=== PATIENT | female | born 1965 ===

== ENCOUNTER 2017-11-25 20:22 | Emergency (ER) | payer OTHER ==
[2017-11-25 20:22] VITALS: BMI 26.7
--- NOTE | 2017-11-25 20:51 | C.PDOC ---
History Of Present Illness 52 y/o female presents to the ED complaining of mid-sternal chest pain, onset around 6:00pm this evening. She denies prior history of similar pain in the past or family history of [place]. Pain is described as pressure-like, 4/10, and non- radiating. She states it worsens with movement of the upper extremities, not with inspiration. Otherwise patient denies associated SOB, VU, abdominal pain, diarrhea, dark or bloody stool, constipation, fever, chills, night sweats, or vomiting. Patient states she was cleaning this afternoon and then had a verbal argument with someone just prior to onset of pain. She denies trauma or fall. Tried taking ibuprofen around 7pm with no relief. Time Seen by Provider: 11/25/17 20:51 Chief Complaint (Nursing): Chest Pain History Per: Patient, Family (Son at bedside, translating Swiss for patient) History/Exam Limitations: no limitations Onset/Duration Of Symptoms: Hrs Current Symptoms Are (Timing): Still Present Past Medical History Reviewed: Historical Data, Nursing Documentation, Vital Signs Vital Signs: Last Vital Signs Temp 98.1 F 11/25/17 20:40 Pulse 69 11/26/17 01:52 Resp 16 11/26/17 01:52 BP 97/58 L 11/26/17 01:52 Pulse Ox 97 11/26/17 01:52 - Medical History PMH: No Chronic Diseases Surgical History: No Surg Hx Family History: States: No Known Family Hx Denies: [place] - Social History Hx Tobacco Use: No Hx Alcohol Use: Yes Hx Substance Use: No - Immunization History Hx Tetanus Toxoid Vaccination: No Hx Influenza Vaccination: No Hx Pneumococcal Vaccination: No Review Of Systems Constitutional: Negative for: Fever, Chills, Sweats Eyes: Negative for: Vision Change Cardiovascular: Positive for: Chest Pain. Negative for: Light Headedness Respiratory: Negative for: Shortness of Breath, SOB with Excertion Gastrointestinal: Negative for: Vomiting, Abdominal Pain Musculoskeletal: Negative for: Shoulder Pain, Arm Pain Neurological: Negative for: Weakness, Numbness, Headache, Dizziness Physical Exam - Physical Exam Appears: Non-toxic, No Acute Distress Skin: Warm, Dry Head: Atraumatic, Normacephalic Eye(s): bilateral: Normal Inspection, PERRL, EOMI Oral Mucosa: Moist Neck: Normal, Normal ROM, Trachea Midline, No Midline Cervical Tenderness, No Paracervical Tenderness, Supple, Other (negative kernig's and brudzinskis) Chest: Symmetrical, Tenderness (Reproducible mid-sternal chest pain on palpation ) Cardiovascular: Rhythm Regular, Other (No rub) Respiratory: No Rales, No Rhonchi, No Wheezing Gastrointestinal/Abdominal: Soft, No Tenderness, No Distention Extremity: Bilateral: Atraumatic, Normal Color And Temperature, Normal ROM Pulses: Left Dorsalis Pedis: Normal, Right Dorsalis Pedis: Normal Neurological/Psych: Oriented x3, Normal Speech Gait: Steady ED Course And Treatment - Laboratory Results Result Diagrams: 11/25/17 21:19 11/25/17 21:19 ECG: Interpreted By Me, Viewed By Me ECG Rhythm: Sinus Rhythm Rate From EC O2 Sat by Pulse Oximetry: 98 (on RA) Pulse Ox Interpretation: Normal Medical Decision Making Medical Decision Making: Impression: 52 y/o female complaining of mid-sternal chest pain, onset after stressful argument, no prior hx of chest pain or cardiac disease Plan: --EKG --CMP --Troponin I --CBC --Chest x-ray --Reassess and dispo Progress/Updates: EKG: NSR at 71 bpm, no STEMI, single flipped T in lead 3 1000 1st trop negative pending 2nd trop given CP @ 6pm HEART SCORE: Trop: pend RF: 0 Age: 1 EK Story: 0 [id number] 2nd trop negative pt remains pain free clear for d/c home Disposition - Disposition Disposition Time: 02:37 Condition: GOOD Forms: [facility] (Belizean) - Clinical Impression Clinical Impression: Chest pain - Scribe Statement The provider has reviewed the documentation as recorded by the Scribe (Martha Plasencia) Provider Attestation: All medical record entries made by the Scribe were at my direction and personally dictated by me. I have reviewed the chart and agree that the record accurately reflects my personal performance of the history, physical exam, medical decision making, and the department course for this patient. I have also personally directed, reviewed, and agree with the discharge instructions and disposition.
[2017-11-25 21:22] LABS: BASO # 0.1 K/uL (0.0-0.2); BASO % 0.9 % (0.0-2.0); EOS # 0.5 K/uL (0.0-0.7); EOS % 5.2 % (0.0-4.0); LYMPH # 3.6 K/uL (1.0-4.3); LYMPH % 39.9 % (20.0-40.0); MEAN CELL VOLUME 89.8 fL (81.0-99.0); MEAN CORPUSCULAR HEMOGLOBIN 31.2 pg (27.0-31.0); MEAN CORPUSCULAR HGB CONC 34.7 g/dL (33.0-37.0); MEAN PLATELET VOLUME 8.8 fL (7.2-11.7); MONO # 0.6 K/uL (0.0-0.8); NEUT # 4.2 K/uL (1.8-7.0); NRBC % 0.1 % (0.0-2.0); RBC 4.16 Mil/uL (3.80-5.20); RED CELL DISTRIBUTION WIDTH 13.4 % (11.5-14.5)
[2017-11-25 21:39] LABS: ALB/GLOB RATIO 1.5 (1.0-2.1); ALBUMIN 4.3 g/dL (3.5-5.0); ALT/SGPT 41 U/L (9-52); AST/SGOT 29 U/L (14-36); BLOOD UREA NITROGEN 14 mg/dL (7-17); CALCIUM 9.9 mg/dl (8.6-10.4); GFR NON-AFRICAN AMERICAN > 60
[2017-11-25 23:10] VITALS: RESP 16
[2017-11-26 01:52] VITALS: BP 97/58; PULSE 69
[2017-11-26 02:38] VITALS: O2SAT 98
[2017-11-26 02:47] VITALS: TEMP 98.3
--- NOTE | 2017-11-26 07:49 | RAD ---
Date of service: 11/25/2017 HISTORY: cp COMPARISON: No prior. TECHNIQUE: Chest PA and lateral FINDINGS: LUNGS: No active pulmonary disease. PLEURA: No significant pleural effusion identified. No pneumothorax apparent. CARDIOVASCULAR: Normal. OSSEOUS STRUCTURES: No significant abnormalities. VISUALIZED UPPER ABDOMEN: Normal. OTHER FINDINGS: None. IMPRESSION: No acute cardiopulmonary disease appreciated.
--- NOTE | 2017-11-27 06:57 | CARD ---
APPROVED REPORT Date of service: 11/25/2017 EKG Measurement Heart [id number] <Conclusion> Normal sinus rhythm Normal ECG
== END 2017-11-26 02:57 | disposition home or self-care (01) ==
LOC: C.ER 20:22
DX: R07.9 Chest pain, unspecified (principal)